=== PATIENT | male | born 1970 | race African-American/Black ===

== ENCOUNTER 2018-05-19 10:33 | Emergency (ER) | payer MEDICARE, MEDICAID ==
[~2018-05-19] VITALS: Ht 185.4 cm; Wt 77.7 kg
[~2018-05-19 10:33] MED LIST: AMIODARONE HCL200 MG PO; AMITRIPTYLINE150 MG PO; ATENOLOL25 MG PO; CARAFATE 1GM1 G PO; CARAFATE1 GM PO; CARVEDILOL6.25 MG PO; CATAPRES 0.1MG0.1 MG PO; CEPASTAT14.5 MG MM; CHLORASEPTIC 1180 M3 MM; COLACE 100100 MG/CAP PO; CORDARONE200 MG PO; COREG 3.123.125 MG/T PO; COREG12.5 MG PO; COREG3.125 MG PO; CYMBALTA 60MG60 MG PO; CYMBALTA PO; DEXILANT60 MG PO; DOXYCYCLINE 10100 MG PO; EQUATE ACID REDUCER PO; FERROUS SU325 MG/TAB PO; FERROUS SULFATE65 MG PO; FLOVENT 110MCG7.9 GM IH; GABAPENTIN300 M1 PO; HUMALOG100 U/ML SC; IMODIUM 2MG CAPS2 MG PO; IMODIUM A-D2 MG PO; INDERAL40 MG PO; LANTUS SOLOS100 U/ML SC; LANTUS100 U/ML; LANTUS100 U/ML IJ; LANTUS100 U/ML SC; LEVAQUIN 750MG750 M1 PO; LEVEMIR100 U/ML SC; LISINOPRIL2.5 MG PO; LISINOPRIL5 MG PO; LOMOTIL 0.025 M1 TAB PO; METHIMAZOLE10 MG PO; NEURONTIN250 MG/5 M PO; NEURONTIN300 MG PO; NEXIUM 20MG CAP20 MG PO; NEXIUM 40MG40 MG PO; NORCO 325 MG-51 TAB PO; NORVASC; NOVOLOG 100U100 U/M1 SC; NOVOLOG 100U100 U/M1 SQ; NOVOLOG FLEX100 U/ML SC; NOVOLOG FLEX100 U/ML SQ; OMEPRAZOLE MAGN20 MG PO; PREVACID 30MG30 M1 PO; PRIL40 PO; PRILOSEC 20MG20 MG PO; PYRIDIUM200 M1 PO; REGLAN 10MG10 MG/TAB PO; SILVADENE CREAM1 TU TP; SUPRAX PO; SYNTHROID0.2 MG/TAB PO; TAPAZOLE10 MG PO; TENORMIN0.5 MG/ML PO; VITAMIN D 1001000 IU PO; VITAMIN D31000 IU PO; VITAMIN D32000 IU PO; VITAMIN D8000 IU/ML PO; ZOFRAN 4MG T4 MG/TAB PO; ZOLOFT 50MG50 MG PO; [UNRECOGNIZED DRUG - OTHER]; [UNRECOGNIZED DRUG - REMARK]
[2018-05-19 10:35] VITALS: BP 144/88; TEMP 98.3
[2018-05-19] MEDS ORDERED: NOVLOG SQ (10:42)
[2018-05-19] MEDS ORDERED: NORCO 325 MG-51 TAB PO (11:35)
[2018-05-19 11:42] VITALS: PULSE 78
== END 2018-05-19 11:42 | disposition home or self-care (01) ==
LOC: COL.ER 10:33
DX: S50.02XA Contusion of left elbow, initial encounter (principal); E03.9 Hypothyroidism, unspecified; E10.40 Type 1 diabetes mellitus with diabetic neuropathy, unspecified; F12.90 Cannabis use, unspecified, uncomplicated; Z79.4 Long term (current) use of insulin; V19.9XXA Pedal cyclist (driver) (passenger) injured in unspecified traffic accident, initial encounter; Y92.410 Unspecified street and highway as the place of occurrence of the external cause

== ENCOUNTER 2018-06-07 21:09 | Emergency (ER) | payer MEDICARE, MEDICAID ==
[~2018-06-07] VITALS: Ht 185.4 cm; Wt 77.3 kg
[~2018-06-07 21:09] MED LIST changes: +NOVLOG SQ
[2018-06-07] MEDS ORDERED: OPIUM 10 MG/ML (21:23)
[2018-06-07 21:52] LABS: BASO % 0.5 % (0.0-2.0); EOS # 0.5 (0.0-0.7); EOS % 6.3 % (0-4.0); GRAN # 5.9 (1.4-6.5); GRAN % 69.8 % (42.2-75.2); HEMATOCRIT 43.5 % (42.0-52.0); HEMOGLOBIN 14.6 g/dl (13.5-18.0); LYMPH # 1.3 (1.2-3.4); LYMPH % 15.1 % (20.0-51.0); MEAN CELL VOLUME 92 fl (80.0-100.0); MEAN CORPUSCULAR HEMOGLOBIN 31 pg (27.0-31.0); MEAN CORPUSCULAR HGB CONC 34 g/dl (33.0-37.0); MONO # 0.6 (0.1-0.6); MONO % 7.2 % (1.7-9.3); PLATELET COUNT 188 K/mm3 (130-400); RED BLOOD COUNT 4.75 M/mm3 (4.20-5.60); REDCELL DISTRIBUTION WIDTH-CV 13.1 % (11.5-14.5)
[2018-06-07 22:05] LABS: BILIRUBIN,TOTAL 1.1 mg/dL (0.0-1.0); CREATININE, serum 1.12 mg/dL (0.66-1.25); POTASSIUM 4.4 mmol/L (3.4-5.0); TOTAL PROTEIN 7.7 gm/dL (6.4-8.2)
[2018-06-07 22:44] VITALS: BP 146/95; PULSE 62; TEMP 97.6
== END 2018-06-07 22:46 | disposition home or self-care (01) ==
LOC: COL.ER 21:09
PROVIDERS: Emergency Medicine
DX: E10.649 Type 1 diabetes mellitus with hypoglycemia without coma (principal); E03.9 Hypothyroidism, unspecified; Z90.89 Acquired absence of other organs; Z87.442 Personal history of urinary calculi; Z98.890 Other specified postprocedural states; Z79.4 Long term (current) use of insulin

== ENCOUNTER 2018-09-04 04:31 | Emergency (ER) | payer MEDICARE, MEDICAID ==
[~2018-09-04] VITALS: Ht 185.4 cm; Wt 77.3 kg
[~2018-09-04 04:31] MED LIST changes: +OPIUM 10 MG/ML PO
[2018-09-04 04:42] VITALS: TEMP 97
[2018-09-04] MEDS ORDERED: COREG 6.256.25 MG/TA PO (05:00)
[2018-09-04] MEDS ORDERED: ERGOCALCIFER50000 IU PO (05:01)
[2018-09-04] MEDS ORDERED: VIBERZI100 MG PO (05:02)
[2018-09-04] MEDS ORDERED: CALCIUM CARBON650 M2 PO (05:04)
[2018-09-04 05:40] LABS: BASO % 0.3 % (0.0-2.0); EOS # 0.2 (0.0-0.7); EOS % 1.6 % (0-4.0); GRAN # 8.2 (1.4-6.5); GRAN % 80.3 % (42.2-75.2); HEMOGLOBIN 12.4 g/dl (13.5-18.0); LYMPH # 1.1 (1.2-3.4); LYMPH % 10.4 % (20.0-51.0); MEAN CELL VOLUME 92 fl (80.0-100.0); MEAN CORPUSCULAR HEMOGLOBIN 32 pg (27.0-31.0); MEAN CORPUSCULAR HGB CONC 34 g/dl (33.0-37.0); MEAN PLATELET VOLUME 9.8 fl (7.4-10.4); MONO # 0.8 (0.1-0.6); MONO % 7.3 % (1.7-9.3); PLATELET COUNT 198 K/mm3 (130-400); RED BLOOD COUNT 3.93 M/mm3 (4.20-5.60); REDCELL DISTRIBUTION WIDTH-CV 13.2 % (11.5-14.5)
[2018-09-04 05:45] LABS: HEMATOCRIT 36.3 % (42.0-52.0)
[2018-09-04 05:51] LABS: ALBUMIN 3.9 gm/dL (3.5-5.0); BILIRUBIN,TOTAL 0.9 mg/dL (0.0-1.0); CALCIUM 8.7 mg/dL (8.4-10.2); CREATININE, serum 0.87 mg/dL (0.66-1.25); POTASSIUM 3.6 mmol/L (3.4-5.0); TOTAL PROTEIN 7.4 gm/dL (6.4-8.2)
[2018-09-04 09:36] VITALS: BP 119/64; PULSE 81
== END 2018-09-04 09:38 | disposition home or self-care (01) ==
LOC: COL.ER 04:31
PROVIDERS: Emergency Medicine
DX: E11.649 Type 2 diabetes mellitus with hypoglycemia without coma (principal); T38.3X5A Adverse effect of insulin and oral hypoglycemic [antidiabetic] drugs, initial encounter; I10 Essential (primary) hypertension; Z79.4 Long term (current) use of insulin
CPT/HCPCS: J7030

== ENCOUNTER 2018-11-08 21:55 | Emergency (ER) | payer MEDICARE, MEDICAID ==
[~2018-11-08] VITALS: Ht 185.4 cm; Wt 72.7 kg
[~2018-11-08 21:55] MED LIST changes: +CALCIUM CARBON650 M2 PO; +COREG 6.256.25 MG/TA PO; +ERGOCALCIFER50000 IU PO; +VIBERZI100 MG PO
[2018-11-08 21:58] VITALS: TEMP 97.8
[2018-11-08 22:47] LABS: ALBUMIN 4.2 gm/dL (3.5-5.0); BILIRUBIN,TOTAL 0.8 mg/dL (0.0-1.0); CALCIUM 9.5 mg/dL (8.4-10.2); POTASSIUM 4.4 mmol/L (3.4-5.0); TOTAL PROTEIN 7.6 gm/dL (6.4-8.2)
[2018-11-08 22:50] LABS: BASO % 0.5 % (0.0-2.0); EOS # 0.3 (0.0-0.7); GRAN # 4.8 (1.4-6.5); GRAN % 64.2 % (42.2-75.2); HEMATOCRIT 43.5 % (42.0-52.0); LYMPH # 1.7 (1.2-3.4); MEAN CELL VOLUME 91 fl (80.0-100.0); MEAN CORPUSCULAR HEMOGLOBIN 31 pg (27.0-31.0); MEAN CORPUSCULAR HGB CONC 35 g/dl (33.0-37.0); MEAN PLATELET VOLUME 10.9 fl (7.4-10.4); MONO # 0.6 (0.1-0.6); MONO % 8.2 % (1.7-9.3); PLATELET COUNT 73 K/mm3 (130-400); RED BLOOD COUNT 4.78 M/mm3 (4.20-5.60)
[2018-11-09 00:07] VITALS: BP 140/96; PULSE 77
== END 2018-11-09 00:17 | disposition home or self-care (01) ==
LOC: COL.ER 21:55
PROVIDERS: Emergency Medicine
DX: S00.93XA Contusion of unspecified part of head, initial encounter (principal); E10.649 Type 1 diabetes mellitus with hypoglycemia without coma; E03.9 Hypothyroidism, unspecified; I10 Essential (primary) hypertension; W19.XXXA Unspecified fall, initial encounter; W22.8XXA Striking against or struck by other objects, initial encounter; Z79.4 Long term (current) use of insulin
CPT/HCPCS: J7030

== ENCOUNTER 2019-02-24 07:53 | Emergency (ER) | payer MEDICARE, MEDICAID ==
[~2019-02-24] VITALS: Ht 185.4 cm; Wt 77.3 kg
[2019-02-24 08:02] VITALS: TEMP 97.5
[2019-02-24] MEDS ORDERED: SYNTHROID0.2 MG/TAB PO (08:30)
[2019-02-24] MEDS ORDERED: SYNTHROID 0.0.025 MG PO (08:31)
[2019-02-24 09:17] LABS: BASO % 0.4 % (0.0-2.0); EOS # 0.5 (0.0-0.7); EOS % 5.4 % (0-4.0); GRAN # 6.4 (1.4-6.5); GRAN % 68.6 % (42.2-75.2); HEMATOCRIT 40.3 % (42.0-52.0); HEMOGLOBIN 13.7 g/dl (13.5-18.0); LYMPH # 1.7 (1.2-3.4); LYMPH % 18.4 % (20.0-51.0); MEAN CELL VOLUME 90 fl (80.0-100.0); MEAN CORPUSCULAR HEMOGLOBIN 31 pg (27.0-31.0); MEAN CORPUSCULAR HGB CONC 34 g/dl (33.0-37.0); MEAN PLATELET VOLUME 9.9 fl (7.4-10.4); MONO # 0.7 (0.1-0.6); PLATELET COUNT 177 K/mm3 (130-400); RED BLOOD COUNT 4.46 M/mm3 (4.20-5.60); REDCELL DISTRIBUTION WIDTH-CV 12.8 % (11.5-14.5)
[2019-02-24 09:30] LABS: ALBUMIN 3.6 gm/dL (3.5-5.0); BILIRUBIN,TOTAL 0.8 mg/dL (0.0-1.0); CALCIUM 8.4 mg/dL (8.4-10.2); CREATININE, serum 1.03 (0.66-1.25); TOTAL PROTEIN 6.9 gm/dL (6.4-8.2)
[2019-02-24 10:07] VITALS: BP 136/93; PULSE 72
== END 2019-02-24 10:25 | disposition home or self-care (01) ==
LOC: COL.ER 07:53
PROVIDERS: Emergency Medicine
DX: E10.649 Type 1 diabetes mellitus with hypoglycemia without coma (principal); F12.90 Cannabis use, unspecified, uncomplicated; I10 Essential (primary) hypertension
CPT/HCPCS: J7030

== ENCOUNTER 2019-03-23 23:12 | Emergency (ER) | payer MEDICARE, MEDICAID ==
[~2019-03-23] VITALS: Ht 185.4 cm; Wt 77.3 kg
[~2019-03-23 23:12] MED LIST changes: +SYNTHROID 0.0.025 MG PO
[2019-03-23 23:47] LABS: BASO % 0.3 % (0.0-2.0); EOS # 0.3 (0.0-0.7); EOS % 2.7 % (0-4.0); GRAN # 8.5 (1.4-6.5); GRAN % 80.1 % (42.2-75.2); HEMATOCRIT 39.4 % (42.0-52.0); HEMOGLOBIN 13.3 g/dl (13.5-18.0); LYMPH # 1.1 (1.2-3.4); LYMPH % 10.2 % (20.0-51.0); MEAN CELL VOLUME 91 fl (80.0-100.0); MEAN CORPUSCULAR HEMOGLOBIN 31 pg (27.0-31.0); MEAN CORPUSCULAR HGB CONC 34 g/dl (33.0-37.0); MONO # 0.7 (0.1-0.6); MONO % 6.5 % (1.7-9.3); PLATELET COUNT 133 K/mm3 (130-400); RED BLOOD COUNT 4.31 M/mm3 (4.20-5.60); REDCELL DISTRIBUTION WIDTH-CV 13.1 % (11.5-14.5)
[2019-03-23 23:59] LABS: ALBUMIN 3.8 gm/dL (3.5-5.0); CALCIUM 8.6 mg/dL (8.4-10.2); CREATININE, serum 0.94 (0.66-1.25); TOTAL PROTEIN 7.3 gm/dL (6.4-8.2)
[2019-03-24 01:53] VITALS: BP 145/88; PULSE 69
== END 2019-03-24 01:45 | disposition home or self-care (01) ==
LOC: COL.ER 23:12
PROVIDERS: Emergency Medicine
DX: E11.649 Type 2 diabetes mellitus with hypoglycemia without coma (principal); E03.9 Hypothyroidism, unspecified; Z87.442 Personal history of urinary calculi; Z79.4 Long term (current) use of insulin

== ENCOUNTER 2019-03-31 01:18 | Inpatient (IN) | payer MEDICARE, MEDICAID ==
[~2019-03-31] VITALS: Ht 185.4 cm; Wt 70.9 kg
[2019-03-31 01:47] LABS: HEMATOCRIT 45.9 % (42.0-52.0); HEMOGLOBIN 16.3 g/dl (13.5-18.0); MEAN CELL VOLUME 85 fl (80.0-100.0); MEAN CORPUSCULAR HEMOGLOBIN 30 pg (27.0-31.0); MEAN CORPUSCULAR HGB CONC 36 g/dl (33.0-37.0); MEAN PLATELET VOLUME 10.2 fl (7.4-10.4); PLATELET COUNT 233 K/mm3 (130-400); REDCELL DISTRIBUTION WIDTH-CV 12.5 % (11.5-14.5)
[2019-03-31 01:53] LABS: ALBUMIN 4.1 gm/dL (3.5-5.0); BILIRUBIN,TOTAL 2.4 mg/dL (0.0-1.0); CALCIUM 9.1 mg/dL (8.4-10.2); CREATININE, serum 1.16 (0.66-1.25); POTASSIUM 3.4 mmol/L (3.4-5.0); TOTAL PROTEIN 8.1 gm/dL (6.4-8.2)
[2019-03-31 02:30] LABS: BAND 3 % (0-10); BASOPHIL 1 % (0-2); LYMPHOCYTE 9 % (20.0-51.0); NEUTROPHILS 78 % (42.0-75.2); PLATELET ESTIMATE NORMAL (NORMAL)
--- NOTE | 2019-03-31 08:44 | NUR ---
Patient arrived to floor from ER via stretcher. He is observed to be laying on right side in position. He states he is having pain in his throat and stomach from vomiting so much. He does state that is all over feeling poorly. Patient is currently having a PICC placed as ER staff was unable to obtain IV access. Patient has orders for fluids and medications that will be administered as soon as possible after PICC placement. He has been noticed to be spitting in an emesis bag, no vomit noted. He said he feels as if he is having excess saliva from the nausea. Patient has no further needs at this time. Personal items and call light is within reach.
[2019-03-31] MEDS ORDERED: OPIUM 10 MG/ML BC (09:59)
[2019-03-31] MEDS ORDERED: CREON 36000 PO (10:01)
[2019-03-31] MEDS ORDERED: LEXAPRO20 MG PO (10:01)
[2019-03-31 11:48] VITALS: BP 100/69; PULSE 98; TEMP 99.5
[2019-03-31 15:41] VITALS: BP 107/75; PULSE 93; TEMP 98.8
[2019-03-31 17:04] LABS: CALCIUM 7.5 mg/dL (8.4-10.2); POTASSIUM 3.1 mmol/L (3.4-5.0)
--- NOTE | 2019-03-31 18:33 | NUR ---
Patient is resting in bed watching TV. States he is feeling much better but throat is sore from vomiting. Consent obtained for EGD tomorrow. Personal items are within reach, along with call light.
[2019-03-31 19:43] VITALS: BP 122/85; PULSE 87; TEMP 96.9
[2019-03-31 20:22] LABS: COLLECTION METHOD CLEAN CATCH
[2019-03-31 20:38] LABS: MUCOUS Present /lpf; PH 6 (5-8); SQUAMOUS EPITHELIAL 0-2 /hpf; URINE APPEARANCE Clear; URINE BACTERIA Many /hpf; URINE BILIRUBIN Negative (NEGATIVE); URINE BLOOD 1+ (NEGATIVE); URINE COLOR Yellow; URINE GLUCOSE Negative (NEGATIVE); URINE KETONE 1+ (NEGATIVE); URINE LEUKOCYTE ESTERASE 3+ (NEGATIVE); URINE NITRATE Negative (NEGATIVE); URINE PROTEIN(semi-quant) Negative (NEGATIVE); URINE UROBILINOGEN Negative (NEGATIVE)
--- NOTE | 2019-03-31 21:30 | NUR ---
PT RESTING IN BED REPORTS NAUSEA- PRN ZOFRAN GIVEN- REPORTS RELIEF. PICC FLUSES WELL, BLOOD RETURN NOTED. SHIFT ASSESSMENT COMPLETE. NO CONCERNS AT THIS TIME. CALL LIGHT IN REACH.
[2019-04-01] VITALS (14 sets, daily range): BP systolic 105–143; BP diastolic 65–92; PULSE 67–84; TEMP 97.6–99
--- NOTE | 2019-04-01 02:57 | NUR ---
pt resting in bed reports no nausea since Zofran given previously. no needs, call light in reach
--- NOTE | 2019-04-01 05:24 | NUR ---
PT SLEPT THROUGHOUT NIGHT. REPORTED NAUSEA- PRN ZOFRAN RELIEVED NAUSEA. PICC FLUSHES WELL BLOODD RETURN NOTED. PT NPO SINCE MIDNIGHT. NO NEEDS AT THIS TIME. CALL LIGHT IN REACH
[2019-04-01 05:54] LABS: BASO % 0.4 % (0.0-2.0); EOS # 0.2 (0.0-0.7); EOS % 1.3 % (0-4.0); GRAN # 6.8 (1.4-6.5); GRAN % 60.1 % (42.2-75.2); HEMATOCRIT 40.1 % (42.0-52.0); LYMPH # 2.9 (1.2-3.4); LYMPH % 26.1 % (20.0-51.0); MEAN CELL VOLUME 89 fl (80.0-100.0); MEAN CORPUSCULAR HEMOGLOBIN 31 pg (27.0-31.0); MEAN CORPUSCULAR HGB CONC 35 g/dl (33.0-37.0); MEAN PLATELET VOLUME 10.8 fl (7.4-10.4); MONO # 1.3 (0.1-0.6); MONO % 11.7 % (1.7-9.3); PLATELET COUNT 181 K/mm3 (130-400); RED BLOOD COUNT 4.49 M/mm3 (4.20-5.60); REDCELL DISTRIBUTION WIDTH-CV 12.7 % (11.5-14.5)
[2019-04-01 06:04] LABS: HEMOGLOBIN 13.9 g/dl (13.5-18.0)
[2019-04-01 06:09] LABS: ALBUMIN 3.1 gm/dL (3.5-5.0); BILIRUBIN,TOTAL 2.2 mg/dL (0.0-1.0); CALCIUM 8.1 mg/dL (8.4-10.2); CREATININE, serum 1.07 (0.66-1.25); POTASSIUM 3.5 mmol/L (3.4-5.0); TOTAL PROTEIN 6.3 gm/dL (6.4-8.2)
--- NOTE | 2019-04-01 07:22 | NUR ---
report given to JENIFER Chin. pt sleeping
--- NOTE | 2019-04-01 07:38 | NUR ---
Report from Mari BURGESS.
--- NOTE | 2019-04-01 11:05 | NUR ---
PATIENT UP TO BR FOR SHOWER WITH ASSIST OF STAFF. SHOWERED AND RETURNED TO BED. PT IS A/O X3, NPO FOR EGD, CONSENT ON CHART, BLOOD GLUCOSE WELL CONTROLLED. LAST ACCUCHECK 89.
--- NOTE | 2019-04-01 13:10 | NUR ---
PATIENT RETURNED TO ROOM 319 PER BED WITH REPORT FROM DA BURGESS ENDO @1250 PT AMBULATED INDEPENDENTLY TO BED FROM [facility]. PT IS A/O X3 IV TO PICC LINE VALERIE. FLUIDS RUNNING PER PACU. PT DENIES NEEDS. EUGENE OLIVAREZ [employer] SPECIALIST IN TO SEE PATIENT. SEE COMPUTER FOR NEW ORDERS.
--- NOTE | 2019-04-01 16:13 | NUR ---
SW met with patient to discuss discharge planning. Patient lives independently at home with is mother. Patient's PCP is Dr Dill in [place] and he obtains prescriptions from [facility]. Patient does not use any home health services or DME. Patient does not have a DPOA and is not interested in obtaining one. SW does not anticipate any discharge needs.
--- NOTE | 2019-04-01 20:00 | NUR ---
pt resting in bed A+Ox4. reports no pain no nausea. shift assessment complete. PICC flushes well, blood return noted x2. no concerns at this time. call light in reach
--- NOTE | 2019-04-02 02:29 | NUR ---
PT SLEPT THROUGHOUT NIGHT. NO COMPLAITS AT THIS TIME. CALL LIGHT IN REACH
[2019-04-02 04:59] VITALS: BP 99/50; PULSE 70; TEMP 98.6
[2019-04-02 06:56] LABS: BASO % 0.2 % (0.0-2.0); EOS # 0.2 (0.0-0.7); EOS % 2.3 % (0-4.0); GRAN # 6.8 (1.4-6.5); GRAN % 64.2 % (42.2-75.2); HEMOGLOBIN 12.3 g/dl (13.5-18.0); LYMPH # 2.4 (1.2-3.4); LYMPH % 22.4 % (20.0-51.0); MEAN CELL VOLUME 91 fl (80.0-100.0); MEAN CORPUSCULAR HEMOGLOBIN 31 pg (27.0-31.0); MEAN CORPUSCULAR HGB CONC 34 g/dl (33.0-37.0); MEAN PLATELET VOLUME 11.1 fl (7.4-10.4); MONO # 1.1 (0.1-0.6); MONO % 10.6 % (1.7-9.3); PLATELET COUNT 139 K/mm3 (130-400); RED BLOOD COUNT 3.97 M/mm3 (4.20-5.60); REDCELL DISTRIBUTION WIDTH-CV 12.5 % (11.5-14.5)
--- NOTE | 2019-04-02 07:00 | NUR ---
report given to JENIFER Patterson. pt sleeping at this time
[2019-04-02 07:04] LABS: HEMATOCRIT 36.3 % (42.0-52.0)
[2019-04-02 07:08] LABS: CALCIUM 7.6 mg/dL (8.4-10.2); CREATININE, serum 1.06 (0.66-1.25); POTASSIUM 3.8 mmol/L (3.4-5.0)
--- NOTE | 2019-04-02 07:35 | NUR ---
REPORT RECEIVED FROM JENIFER MARQUIS. PT SLEEPING SOUNDLY IN BED. CALL LIGHT IN REACH.
[2019-04-02 07:56] VITALS: BP 136/84; PULSE 71; TEMP 98.1
--- NOTE | 2019-04-02 09:32 | NUR ---
Pt having breakfast in bed. Pt denied pain, N/V. Call light in reach. No concern.
--- NOTE | 2019-04-02 11:07 | NUR ---
Visit attempted and pt sleeping soundly in bed. Call light in reach.
[2019-04-02] MEDS ORDERED: PROTONIX 40MG T40 MG PO (11:36)
[2019-04-02] MEDS ORDERED: CIPRO 250MG TA250 MG PO (12:06)
--- NOTE | 2019-04-02 14:03 | NUR ---
Pt went over discharge instruction and able to verbalize understanding of dc insruction. Pt signed dc instruction andwaiting for his ride at this time. Call light in reach.
== END 2019-04-02 14:00 | disposition home or self-care (01) | DRG 74 ==
LOC: COL.ER 01:18 → MEDICAL 07:47
PROVIDERS: Emergency Medicine; Nurse Practitioner Family; ADMIT Internal Medicine
PROC: 02HV33Z Insertion of Infusion Device into Superior Vena Cava, Percutaneous Approach (ICD-10-PCS; principal; 2019-03-31)
PROC: 0DJ08ZZ Inspection of Upper Intestinal Tract, Via Natural or Artificial Opening Endoscopic (ICD-10-PCS; 2019-04-01)
DX: E10.43 Type 1 diabetes mellitus with diabetic autonomic (poly)neuropathy (principal); N39.0 Urinary tract infection, site not specified; K21.0 Gastro-esophageal reflux disease with esophagitis; K29.70 Gastritis, unspecified, without bleeding; E89.0 Postprocedural hypothyroidism; Z96.41 Presence of insulin pump (external) (internal); K31.84 Gastroparesis; B96.5 Pseudomonas (aeruginosa) (mallei) (pseudomallei) as the cause of diseases classified elsewhere; R11.2 Nausea with vomiting, unspecified
CPT/HCPCS: 99233-AI; 99239; A4216; C1751; C1892; G0378; J0696; J1630; J1650; J2270; J2405; J2550; J2704; J3480; J7030

== ENCOUNTER 2019-06-27 01:39 | Emergency (ER) | payer MEDICARE, MEDICAID ==
[~2019-06-27] VITALS: Ht 185.4 cm; Wt 75.9 kg
[~2019-06-27 01:39] MED LIST changes: +CIPRO 250MG TA250 MG PO; +CREON 36000 PO; +LEXAPRO20 MG PO; +OPIUM 10 MG/ML BC; +PROTONIX 40MG T40 MG PO
[2019-06-27 01:42] VITALS: TEMP 98.2
[2019-06-27 02:10] LABS: BASO % 0.4 % (0.0-2.0); EOS # 0.3 (0.0-0.7); EOS % 4.3 % (0-4.0); GRAN # 4.8 (1.4-6.5); HEMATOCRIT 44.4 % (42.0-52.0); HEMOGLOBIN 14.8 g/dl (13.5-18.0); LYMPH % 25.7 % (20.0-51.0); MEAN CELL VOLUME 95 fl (80.0-100.0); MEAN CORPUSCULAR HEMOGLOBIN 32 pg (27.0-31.0); MEAN CORPUSCULAR HGB CONC 33 g/dl (33.0-37.0); MEAN PLATELET VOLUME 10.8 fl (7.4-10.4); MONO # 0.7 (0.1-0.6); MONO % 8.5 % (1.7-9.3); PLATELET COUNT 169 K/mm3 (130-400); REDCELL DISTRIBUTION WIDTH-CV 12.9 % (11.5-14.5)
[2019-06-27 02:20] LABS: ALBUMIN 4.5 gm/dL (3.5-5.0); BILIRUBIN,TOTAL 0.7 mg/dL (0.0-1.0); CALCIUM 9.4 mg/dL (8.4-10.2); CREATININE, serum 1.24 (0.66-1.25); POTASSIUM 4.4 mmol/L (3.4-5.0); TOTAL PROTEIN 8.2 gm/dL (6.4-8.2)
[2019-06-27 03:50] VITALS: BP 112/95; PULSE 78
== END 2019-06-27 03:50 | disposition home or self-care (01) ==
LOC: COL.ER 01:39
PROVIDERS: Emergency Medicine
DX: E10.649 Type 1 diabetes mellitus with hypoglycemia without coma (principal); Z79.4 Long term (current) use of insulin

== ENCOUNTER 2019-10-14 08:08 | Emergency (ER) | payer MEDICARE, MEDICAID ==
[~2019-10-14] VITALS: Ht 185.4 cm; Wt 72.7 kg
[2019-10-14 08:13] VITALS: TEMP 96.8
[2019-10-14 10:05] LABS: BASO % 0.2 % (0.0-2.0); EOS # 0.2 (0.0-0.7); EOS % 1.6 % (0-4.0); GRAN # 7.1 (1.4-6.5); GRAN % 77.1 % (42.2-75.2); HEMATOCRIT 39.6 % (42.0-52.0); HEMOGLOBIN 13.4 g/dl (13.5-18.0); LYMPH # 1.4 (1.2-3.4); MEAN CELL VOLUME 94 fl (80.0-100.0); MEAN CORPUSCULAR HEMOGLOBIN 32 pg (27.0-31.0); MEAN CORPUSCULAR HGB CONC 34 g/dl (33.0-37.0); MEAN PLATELET VOLUME 10.8 fl (7.4-10.4); MONO # 0.5 (0.1-0.6); MONO % 5.8 % (1.7-9.3); PLATELET COUNT 150 K/mm3 (130-400); RED BLOOD COUNT 4.23 M/mm3 (4.20-5.60); REDCELL DISTRIBUTION WIDTH-CV 14.4 % (11.5-14.5)
[2019-10-14 10:15] LABS: ALANINE AMINOTRANSFERASE 44 U/L (21-72); ALBUMIN 4.3 gm/dL (3.5-5.0); ALKALINE PHOSPHATASE 111 U/L (50-136); ANION GAP 9 mmol/L (7-16); AST,SGOT 57 U/L (15-37); BLOOD UREA NITROGEN 18 mg/dL (9-20); CALCIUM 8.9 mg/dL (8.4-10.2); CARBON DIOXIDE 29 mmol/L (22-30); CHLORIDE 95 mmol/L (98-107); CREATININE, serum 1.34 (0.66-1.25); GLUCOSE 167 mg/dL (74-106); POTASSIUM 5.2 mmol/L (3.4-5.0); SODIUM 133 mmol/L (137-145); TOTAL PROTEIN 7.8 gm/dL (6.4-8.2)
[2019-10-14 10:28] LABS: LIPASE 84 U/L (23-300)
[2019-10-14 10:31] LABS: ALCOHOL(ethanol),MEDICAL < 10 mg/dL
[2019-10-14 12:44] VITALS: BP 121/92; PULSE 92
[2019-10-14 13:14] LABS: COLLECTION METHOD CLEAN CATCH
[2019-10-14 13:32] LABS: MUCOUS Present /lpf; PH 5 (5-8); SQUAMOUS EPITHELIAL None Seen /hpf; TRICYCLIC ANTIDEPRESS URINE NEGATIVE; URINE APPEARANCE Cloudy; URINE BACTERIA Rare /hpf; URINE BILIRUBIN Negative (NEGATIVE); URINE BLOOD Negative (NEGATIVE); URINE COLOR Yellow; URINE GLUCOSE 3+ (NEGATIVE); URINE KETONE Negative (NEGATIVE); URINE LEUKOCYTE ESTERASE Negative (NEGATIVE); URINE NITRATE Negative (NEGATIVE); URINE PROTEIN(semi-quant) Negative (NEGATIVE); URINE UROBILINOGEN Negative (NEGATIVE)
== END 2019-10-14 13:13 | disposition home or self-care (01) ==
LOC: COL.ER 08:08
PROVIDERS: Emergency Medicine
DX: E10.649 Type 1 diabetes mellitus with hypoglycemia without coma (principal); K21.9 Gastro-esophageal reflux disease without esophagitis; E10.43 Type 1 diabetes mellitus with diabetic autonomic (poly)neuropathy; K31.84 Gastroparesis
CPT/HCPCS: J7030

== ENCOUNTER 2019-10-30 23:47 | Emergency (ER) | payer MEDICARE, MEDICAID ==
[~2019-10-30] VITALS: Ht 185.4 cm; Wt 75.0 kg
[2019-10-31 01:09] LABS: BASO % 0.4 % (0.0-2.0); EOS # 0.2 (0.0-0.7); EOS % 3.4 % (0-4.0); GRAN # 4.2 (1.4-6.5); GRAN % 59.8 % (42.2-75.2); HEMATOCRIT 43.8 % (42.0-52.0); HEMOGLOBIN 14.9 g/dl (13.5-18.0); LYMPH # 1.9 (1.2-3.4); LYMPH % 26.4 % (20.0-51.0); MEAN CELL VOLUME 96 fl (80.0-100.0); MEAN CORPUSCULAR HEMOGLOBIN 33 pg (27.0-31.0); MEAN CORPUSCULAR HGB CONC 34 g/dl (33.0-37.0); MEAN PLATELET VOLUME 11.3 fl (7.4-10.4); MONO # 0.7 (0.1-0.6); MONO % 9.6 % (1.7-9.3); PLATELET COUNT 126 K/mm3 (130-400); RED BLOOD COUNT 4.58 M/mm3 (4.20-5.60); REDCELL DISTRIBUTION WIDTH-CV 14.6 % (11.5-14.5)
[2019-10-31 02:25] LABS: ALBUMIN 4.7 gm/dL (3.5-5.0); BILIRUBIN,TOTAL 0.9 mg/dL (0.0-1.0); CALCIUM 9.5 mg/dL (8.4-10.2); CREATININE, serum 1.4 (0.66-1.25); POTASSIUM 4.3 mmol/L (3.4-5.0); TOTAL PROTEIN 8.3 gm/dL (6.4-8.2)
[2019-10-31 02:54] LABS: COLLECTION METHOD CLEAN CATCH
[2019-10-31 03:06] LABS: MUCOUS Present /lpf; PH 5 (5-8); SQUAMOUS EPITHELIAL 0-2 /hpf; URINE APPEARANCE Cloudy; URINE BACTERIA None Seen /hpf; URINE BILIRUBIN Negative (NEGATIVE); URINE BLOOD Negative (NEGATIVE); URINE COLOR Yellow; URINE GLUCOSE 2+ (NEGATIVE); URINE KETONE Negative (NEGATIVE); URINE LEUKOCYTE ESTERASE Negative (NEGATIVE); URINE NITRATE Negative (NEGATIVE); URINE PROTEIN(semi-quant) 1+ (NEGATIVE); URINE RBC >50 /hpf; URINE UROBILINOGEN Negative (NEGATIVE)
[2019-10-31] MEDS ORDERED: CIPRO 500MG TA500 MG PO (03:19)
[2019-10-31 04:06] VITALS: BP 109/81; PULSE 81
== END 2019-10-31 04:23 | disposition home or self-care (01) ==
LOC: COL.ER 23:47
PROVIDERS: Emergency Medicine
DX: E10.649 Type 1 diabetes mellitus with hypoglycemia without coma (principal); E10.10 Type 1 diabetes mellitus with ketoacidosis without coma; E10.43 Type 1 diabetes mellitus with diabetic autonomic (poly)neuropathy; N39.0 Urinary tract infection, site not specified; E03.9 Hypothyroidism, unspecified; I10 Essential (primary) hypertension; K31.84 Gastroparesis
CPT/HCPCS: A4216; J0696

== ENCOUNTER 2019-11-14 12:26 | Emergency (ER) | payer MEDICARE, MEDICAID ==
[~2019-11-14] VITALS: Ht 185.4 cm; Wt 75.9 kg
[~2019-11-14 12:26] MED LIST changes: +CIPRO 500MG TA500 MG PO
[2019-11-14 12:44] VITALS: TEMP 98.4
[2019-11-14 17:10] VITALS: BP 125/85; PULSE 86
== END 2019-11-14 17:10 | disposition home or self-care (01) ==
LOC: COL.ER 12:26
DX: S09.90XA Unspecified injury of head, initial encounter (principal); S02.85XA Fracture of orbit, unspecified, initial encounter for closed fracture; E10.649 Type 1 diabetes mellitus with hypoglycemia without coma; W22.8XXA Striking against or struck by other objects, initial encounter